=== PATIENT | female | born 1990 | race Caucasian/White ===

== ENCOUNTER 2016-12-17 20:30 | Emergency (ER) | payer OTHER ==
[~2016-12-17] VITALS: Ht 170.2 cm; Wt 117.2 kg
[~2016-12-17 20:30] MED LIST: DISKETS40 MG PO; MOTRIN800 MG PO; NAPROSYN500 MG PO; PEN-VEE K,VEET500 MG PO; ULTRAM50 MG PO
[2016-12-17 20:52] LABS: HEMATOCRIT 44.5 % (36.0-46.0); MCHC 33.3 G/DL (30.0-36.0); MCV 87.3 FL (83-99); MEAN PLAT.VOLUME 9.9 uM^3 (9.5-12.4); PLATELET COUNT 348 K/uL (156-360); WHITE BLOOD COUNT 15.9 K/uL (4.1-10.2)
[2016-12-17 21:01] LABS: CHLORIDE 101 mEq/L (99-109); SODIUM 137 mEq/L (136-147)
[2016-12-17 21:02] LABS: GLUCOSE 105 mg/dL (70-99)
[2016-12-17 21:04] LABS: ANION GAP 9 MEQ/L (2-14)
[2016-12-17 21:06] LABS: GFR ESTIMATE (CALCULATED) > 59 mL/min/
[2016-12-17 21:07] LABS: UREA NITROGEN (BUN) 12 mg/dL (9-23)
[2016-12-17 21:13] LABS: TROP-I INTERPRETATION NEGATIVE; TROPONIN-I < 0.01 ng/mL (0.0-0.30)
[2016-12-17 21:57] LABS: D-DIMER ELISA 0.19 mg/L FEU (< 0.57)
[2016-12-17 22:04] LABS: QUANTITATIVE HCG < 4.0 MIU/ML
[2016-12-17 22:38] VITALS: BP 137/75
== END 2016-12-17 22:40 | disposition home or self-care (01) ==
LOC: EME 20:30
DX: J20.9 Acute bronchitis, unspecified (principal); F11.20 Opioid dependence, uncomplicated; F17.200 Nicotine dependence, unspecified, uncomplicated
CPT/HCPCS: 71020; 80048; 84484; 84702; 85027; 85379; 93005; 99281; 99284